=== PATIENT | male | born 1980 | race Caucasian/White ===

== ENCOUNTER 2020-11-07 08:23 | Day surgery (SDC) | payer BC, OTHER ==
[~2020-11-07] VITALS: Ht 182.9 cm; Wt 89.0 kg
[~2020-11-07 08:23] MED LIST: LISINOPRIL-HCT1 EAC1 PO; TERBINAFINE HC250 MG PO
[2020-11-07 09:51] LABS: CALCIUM 9.7 mg/dL (8.5-10.1); CREATININE 0.9 mg/dL (0.7-1.3); POTASSIUM 4.1 mmol/L (3.5-5.1)
[2020-11-07 10:00] VITALS: BP 160/95
[2020-11-07] MEDS ORDERED: HYDROCODON-ACE1 EAC7 PO (11:18)
--- NOTE | 2020-11-07 12:26 | EKG ---
[address] [address] ELECTROCARDIOGRAM REPORT Name: KATHERINE CHOW Room #: 150-2 [facility].#: [id number] Admission: 11/07/20 Attend Phys: Carson Figueroa MD Discharge: Date of : 80 Report #: [id number] [facility] Test Date: 2020-11-07 Test Time: 09:26:00 Pat Name: KATHERINE CHOW Department: Room: 150 2 Gender: M [employer] Room Attendant: ABEL : 1980 Requested By: Jamilah Kc Order Number: [id number] : Fransisco Palma Measurements Intervals [place] Rate: 73 P: 70 MO: 143 QRS: 42 QRSD: 94 T: 38 QT: 372 QTc: 410 Interpretive Statements Sinus rhythm Probable left atrial enlargement No previous ECG available for comparison Electronically Signed On 11-07-2020 12:25:51 CDT by Fransisco Palma [email or web address] <ELECTRONICALLY SIGNED> By: Fransisco Palma MD, [facility] 11/07/20 1225 0926 5 Fransisco Palma MD, FACC /EPI
[2020-11-07 12:29] VITALS: BP 160/95
--- NOTE | 2020-11-08 12:35 | O ---
[facility] [place] [address] OPERATIVE REPORT Name: KATHERINE CHOW Room #: DEP [facility]..#: [id number] Admission: 11/07/20 Attend Phys: Carson Figueroa MD Discharge: 11/07/20 Date of : 80 Report #: [id number] THIS REPORT FOR: cc: Luca Restrepo James A. DO Chu, Peter Y. MD ~ DOC #: [id number] cc: DO Carson Lizama MD DATE OF SERVICE: 11/07/2020 PREOPERATIVE DIAGNOSIS: Symptomatic umbilical hernia. POSTOPERATIVE DIAGNOSIS: Symptomatic umbilical hernia. PROCEDURE PERFORMED: Repair of umbilical hernia with mesh. SURGEON: Carson Figueroa M.D. ANESTHESIA: General anesthesia. COMPLICATIONS: None. ESTIMATED BLOOD LOSS: 5 mL DESCRIPTION OF PROCEDURE: With the patient under general anesthesia, IV antibiotic was administered. Abdomen was prepped and draped in sterile fashion. Timeout was performed. A 0.25% Marcaine was used to anesthetize the skin infraumbilically. A curvilinear incision was made infraumbilically for about 3 cm in length. After dissecting through the skin and subcutaneous tissue, skin of the umbilicus was lifted off of the umbilicus. Once this was lifted off, properitoneal fat that protruded through the umbilical fascial defect into the subcutaneous tissue was identified. This was freed from the overlying skin free from the fascia. This partially was removed. Fascial edges were then cleaned off. The patient has a 1.5 cm fascial defect. The fascial edges were trimmed off. Hemostat was used to grab the fascial edges. Properitoneal space was then dissected free. The abdominal wall is mildly thinned. After creating a preperitoneal space, a medium Ventralex patch was placed in the properitoneal space. This opened up well. The strap was used to identify where the mesh had opened completely. They did. Irrigation was performed. The fascia was closed and incorporating the strap of the Ventralex patch. The closure was performed with horizontal mattress 0 Prolene suture x2. The strap was then trimmed of the fascia. The skin of the umbilicus was tacked down to the fascia with 4-0 PDS. Subcutaneous tissue was closed with 4-0 PDS. Skin was closed with 5-0 PDS interrupted subcuticular fashion. Steri-Strips were applied. A 4 x [address] [address] OPERATIVE REPORT Name: KATHERINE CHOW Room #: DEP [facility]..#: [id number] Admission: 11/07/20 Attend Phys: Carson Figueroa MD Discharge: 11/07/20 Date of : 80 Report #: [id number] placed in the umbilicus for pressure and the Op-Site was used for dressing. The patient was awakened and taken to recovery room, tolerated the procedure well. Carson Figueroa MD Jose Eduardo/SUDARSHAN <ELECTRONICALLY SIGNED> By: Carson Figueroa MD 11/08/201234 28 50 Carson Figueroa MD /nt
== END 2020-11-07 13:10 | disposition home or self-care (01) ==
LOC: OR 08:23 → TBA 08:23 → OR 10:09
PROVIDERS: Student in an Organized Health Care Education/Training Program; ATTEND Surgery
DX: K42.9 Umbilical hernia without obstruction or gangrene (principal); I10 Essential (primary) hypertension; Z98.890 Other specified postprocedural states; Z20.822 Contact with and (suspected) exposure to COVID-19; Z79.899 Other long term (current) drug therapy; Z87.891 Personal history of nicotine dependence
CPT/HCPCS: 50010; 50101; 50130; 50386; 50403; 56524; 56525; 62110; 62900; 70005